=== PATIENT | male | born 2005 | race Caucasian/White ===

== ENCOUNTER 2024-03-28 02:19 | Emergency (ER) | payer OTHER, SELFPAY ==
--- NOTE | 2024-03-28 | ECG_ITS ---
Test Reason : nausea/vomiting Blood Pressure : / mmHG Vent. Rate : 079 BPM Atrial Rate : 079 BPM P-R Int : 108 ms QRS Dur : 086 ms QT Int : 380 ms P-R-T Axes : 031 066 057 degrees QTc Int : 435 ms Sinus rhythm with sinus arrhythmia with short NH ST elevation, consider early repolarization Borderline ECG No previous ECGs available Referred By: Generic ED Physician Electronically Signed By:FARHEEN HUBBARD
[2024-03-28 02:25] VITALS: BP 110/62; PULSE 79; RESP 18; TEMP 36.9; O2SAT 100; BMI 20.8
[2024-03-28 02:54] LABS: Hematocrit 42.5 % (42.0-52.0); Hemoglobin 14.7 g/dl (14.0-18.0); Mean Corpuscular HGB Conc 34.6 g/dl (31.0-36.0); Mean Corpuscular Hemoglobin 29.6 pg (27.0-33.0); Mean Corpuscular Volume 85.5 fL (80.0-98.0); Mean Platelet Volume 9.3 fL (9.4-12.4); Platelet Count 278 X10*3/uL (160-400); Red Blood Count 4.97 X10*6/uL (4.60-5.80); Red Cell Distribution Width 13.2 % (11.0-16.0); White Blood Count 10.2 X10*3/uL (4.8-10.8)
--- NOTE | 2024-03-28 02:54 | MHC.EDTECH ---
Patient ekg taken and was read by Provider ,blood drawn and rsv/covid swab collected and all sent to lab .
[2024-03-28 03:21] LABS: Alanine Aminotransferase 11 U/L (0-40); Albumin Level 4.8 g/dL (3.5-5.0); Alkaline Phosphatase 54 U/L (39-117); Anion Gap 19 (12-20); Aspartate Amino Transferase 14 U/L (5-37); Bilirubin Total 0.7 mg/dL (0.0-1.0); Blood Urea Nitrogen 11 mg/dL (9-16); Calcium 10.4 mg/dL (8.4-10.2); Carbon Dioxide 21 mmol/L (22-29); Chloride 104 mmol/L (96-108); Creatinine Clr Calc Pharmacy 106.1; Estimated Glomerular Filt Rate > 60; Glucose Random 111 mg/dL (60-115); Lipase 9 U/L (8-78); Potassium 4.2 mmol/L (3.3-5.1); Sodium 140 mmol/L (135-145); Total Protein 8.6 g/dL (6.5-8.0)
[2024-03-28 03:32] LABS: Influenza A PCR NEGATIVE (Negative); Influenza B PCR NEGATIVE (Negative); Resp Syncy Virus RNA Qual PCR NEGATIVE (Negative); SARS COV2 PCR INHOUSE NEGATIVE (Negative)
--- NOTE | 2024-03-28 07:01 | ED_ITS ---
HPI - Nausea/Vomiting/Diarrhea General Chief complaint: Nausea/Vomiting/Diarrhea Stated complaint: Dizzy, unable to keep anything down Time Seen by Provider: 03/28/24 06:59 Source: patient Mode of arrival: ambulatory Limitations: no limitations History of Present Illness ED Provider: SHWETA QUISPE Narrative: 18 yo male with no sig PMH started with abrupt onset waking up early AM with n/v/d weakness and not feeling well no sick contacts, travel, food exposures or any known cause. He feels tired nauseated and weak. MD elicited complaint: nausea, vomiting and diarrhea Onset (ago): hour(s) (few) Description of vomiting: food contents and watery Description of diarrhea: watery Associated nausea: Yes Associated abdominal pain: Yes Location of pain: diffuse Radiation: diffuse Pain consistency: intermittent Severity: mild Quality: cramping Exacerbating factors: eating Relieving factors: none Associated symptoms: loss of appetite, malaise, nausea/vomiting and weakness Related Data Previous Rx's ?Medication ?Instructions ?Recorded ondansetron 4 mg disintegrating 4 mg PO Q8H PRN nausea and 03/28/24 tablet vomiting #20 tabs Allergies Allergy/AdvReac Type Severity Reaction Status Date / Time animal dander Allergy Unknown Verified 03/28/24 02:30 Seasonal Allergies Allergy Anaphylaxis Verified 03/28/24 02:30 Review of Systems 2 Review of Systems: Constitutional : No Weight loss, No Fever, No Chills ENT/Mouth : No sore throat, No Rhinorrhea Eyes: No Swelling, No Redness Cardiovascular : No Chest Pain, No SOB, NoEdema Respiratory : No Cough, No Sputum, No Wheezing Gastrointestinal : Positive Nausea, Positive Vomiting, positive Diarrhea, positive abdominal Pain, No Hematochezia, No Melena Genitourinary : No Dysuria, No Urinary Frequency, No Hematuria, No Urgency Musculoskeletal : No joint pain, No Myalgias, No Joint Swelling Skin : No Skin Lesions, No rash Neuro : No Weakness, No Numbness, No Dizziness, No Headache Psych : No Anxiety/Panic, No Depression All other systems reviewed and are negative. Gastrointestinal: Gastrointestinal: Reports nausea PMFSH Past Medical History Attestation statement: The following information was validated with the patient. Source: old records reviewed Medical History No pertinent past medical history Social History Social History (Updated 03/28/24 @ 07:34 by Melissa Singer DO) Patient Tobacco Use Status: Never used Tobacco Advance Directives: No Advance Directives Information Provided: Yes Do you have a plan to hurt others: No Plan Physical Exam 2 Vital Signs: Vital Signs: Last Vital Signs Temp 97.4 F 03/28/24 07:13 Pulse 71 03/28/24 07:13 Resp 18 03/28/24 07:13 BP 107/57 L 03/28/24 07:13 Pulse Ox 98 03/28/24 07:13 O2 Del Method Room Air 03/28/24 07:13 BMI result Body Mass Index 20.8 Appearance: Alert. Oriented X3. No acute distress. Eyes: Pupils equal, round and reactive to light. ENT: Pharynx mildly dry MM Neck: Normal inspection. Neck supple. CVS: Normal heart rate and rhythm. Pulses normal. Respiratory: No respiratory distress. Breath sounds normal. Abdomen: Soft and nontender. Skin: Skin warm and dry. pale skin color. Extremities: No lower extremity edema. Neuro: Oriented X 3. No motor deficit. No sensory deficit. Medical Decision Making Medical Decision Making [facility] Narrative: 18 yo male otherwise healthy here with c/o n/v/d and cramps starting all at once without known exposure at this time labs, IVF x 2L, zofran and will PO challenge suspect viral syndrome given the abrupt onset of all symptoms. no localized ttp to suggest biliary colic or appendicitis Differential Diagnosis Differential Diagnoses: The differential diagnosis associated with the presentation includes viral syndrome, dehydration Admission/Observation Consideration of admission/observation: Escalation of care including admission/observation considered not toxic, able to tolerate PO Lab Data [facility] Lab Attestation statement: I reviewed the patient's lab results. 03/28/24 02:49 03/28/24 02:49 Labs: Lab Results 03/28/24 Range/Units 02:49 WBC 10.2 (4.8-10.8) X10*3/uL RBC 4.97 (4.60-5.80) X10*6/uL Hgb 14.7 (14.0-18.0) g/dl Hct 42.5 (42.0-52.0) % MCV 85.5 (80.0-98.0) fL MCH 29.6 (27.0-33.0) pg MCHC 34.6 (31.0-36.0) g/dl RDW 13.2 (11.0-16.0) % Plt Count 278 (160-400) X10*3/uL MPV 9.3 L (9.4-12.4) fL Absolute Nucleated RBC 0.000 (0.0-0.012) X10*3/uL Nucleated RBC % (auto) 0.0 (0.0-0.2) /100WBC Sodium 140 (135-145) mmol/L Potassium 4.2 (3.3-5.1) mmol/L Chloride 104 (96-108) mmol/L Carbon Dioxide 21 L (22-29) mmol/L Anion Gap 19 (12-20) BUN 11 (9-16) mg/dL Creatinine 0.89 (0.5-1.4) mg/dL Estim Creat Clear Calc 106.1 Estimated GFR > 60 Random Glucose 111 (60-115) mg/dL Calcium 10.4 H (8.4-10.2) mg/dL Total Bilirubin 0.7 (0.0-1.0) mg/dL AST 14 (5-37) U/L ALT 11 (0-40) U/L Alkaline Phosphatase 54 (39-117) U/L Total Protein 8.6 H (6.5-8.0) g/dL Albumin 4.8 (3.5-5.0) g/dL Lipase 9 (8-78) U/L Influenza Type A (PCR) NEGATIVE (Negative) Influenza Type B (PCR) NEGATIVE (Negative) RSV RNA Qual (PCR) NEGATIVE (Negative) SARS-CoV-2 RNA (RT-PCR) NEGATIVE (Negative) Independent Interpretation I performed an independent interpretation of an: EKG Interpretation: Rate: 79 Rhythm: NSR Pelican: normal Normal P waves. Normal ESTEFANIA. Normal QRS complex. ST T wave : early repolarization V1 t wave inversion qTC: normal prior studies: The study has been interpreted contemporaneously by me. . Independent Historian Clinical information obtained from an independent historian. History obtained from or confirmed by: Spouse Prescription Management I considered prescription management with: Other Discharge Plan Discharge Clinical Impression: Acute dehydration Nausea & vomiting Qualifiers: Vomiting type: unspecified Qualified Code(s): R11.2 - Nausea with vomiting, unspecified Patient Disposition: Home, Self-Care Instructions: Dehydration (ED), Acute Nausea and Vomiting (ED) Additional Instructions: bland diet for 2 days - stay hydrated return for worsening symptoms pain inability to eat or drink or any other concerns Prescriptions: New ondansetron 4 mg tablet,disintegrating 4 mg PO Q8H PRN (Reason: nausea and vomiting) Qty: 20 0RF Stand Alone Forms: Work/School Release Print Language: Montserratian
[2024-03-28 07:13] VITALS: BP 107/57; PULSE 71; RESP 18; TEMP 36.3; O2SAT 98
[2024-03-28] MEDS: 0.9 % Sodium Chloride 1,000 ML 999 ML IV ×2 (07:52→09:00)
[2024-03-28] MEDS: ondansetron HCL 4 MG/2 ML VIAL IVPUSH (07:52)
--- NOTE | 2024-03-28 07:54 | PC.NURSE ---
IV established, medicated per the MAR. visitor at bedside, patient with no obvious signs/symptoms of distress noted. even and unlabored respirations.
--- NOTE | 2024-03-28 09:00 | PC.NURSE ---
second liter of fluids infusing, patient and visitor asleep in room, even and unlabored respirations. call carrera remains within reach.
[2024-03-28 10:10] VITALS: BP 103/49; PULSE 66; RESP 16; TEMP 36.8; O2SAT 97
[2024-03-28 10:29] VITALS: BP 103/49; PULSE 66; RESP 16; TEMP 36.8; O2SAT 97
== END 2024-03-28 10:30 | disposition home or self-care (01) ==
PROVIDERS: Emergency Provider Emergency Medicine; PCP Nurse Practitioner Family
DX: E86.0 Dehydration (principal); R11.2 Nausea with vomiting, unspecified
CPT/HCPCS: 0241U; 36415; 80053; 83690; 85027; 93005; 96361; 96374; 99284; J2405

== ENCOUNTER → 2024-03-28 02:37 | Outpatient (BNV) | payer OTHER, SELFPAY | PROVIDERS: Emergency Provider Emergency Medicine; PCP Nurse Practitioner Family; Visit Provider Internal Medicine | DX: I49.9 Cardiac arrhythmia, unspecified (principal) | CPT/HCPCS: 93010 ==

== ENCOUNTER 2024-07-24 13:58 | Emergency (ER) | payer OTHER, SELFPAY ==
[2024-07-24 15:04] VITALS: BP 123/70; PULSE 83; RESP 16; TEMP 36.6; O2SAT 99; BMI 20.2
--- NOTE | 2024-07-24 15:08 | ED_ITS ---
HPI - General Adult General Chief complaint: Burn/Smoke Inhalation Stated complaint: Burn L foot Time Seen by Provider: 07/24/24 16:46 Source: patient and RN notes reviewed Mode of arrival: ambulatory Limitations: no limitations History of Present Illness ED Provider: Bessy Lacey PA-C [facility] narrative: This is a 19-year-old male, with no known medical problems, who presents emergency department with complaints of thermal burn to his left ankle. While he was at work, hot water spilled onto his left ankle. He removed the sock and shoe on his foot and has had burning pain to his left ankle since. Denies taking any medications at home to treat his symptoms. He is UTD with his tdap. No numbness, tingling. MD complaint: Burn Onset (ago): hour(s) Location: lower extremity Radiation: non-radiation Severity: moderate Quality: burning Pain Consistency: constant Relieving factors: cold therapy Exacerbating factors: movement Associated symptoms: denies other symptoms Treatments prior to arrival: none Related Data Previous Rx's ?Medication ?Instructions ?Recorded ondansetron 4 mg disintegrating 4 mg PO Q8H PRN nausea and 03/28/24 tablet vomiting #20 tabs bacitracin 500 unit/gram topical 1 appl topical TID #14 grams 07/24/24 ointment Allergies Allergy/AdvReac Type Severity Reaction Status Date / Time animal dander Allergy Unknown Verified 07/24/24 15:05 Seasonal Allergies Allergy Anaphylaxis Verified 07/24/24 15:05 Review of Systems Review of Systems: Yes all other systems are reviewed and are negative Constitutional: Constitutional: Reports as per [facility] Past Medical History Medical History No pertinent past medical history Social History Social History (Updated 03/28/24 @ 07:34 by Melissa Singer DO) Patient Tobacco Use Status: Never used Tobacco Advance Directives: No Advance Directives Information Provided: No Do you have a plan to hurt others: No Plan Physical Exam ED Vital Signs: Vital Signs - 24 hr 07/24/24 15:04 07/24/24 17:23 Temperature 98 F 98 F Pulse Rate 83 83 Respiratory Rate 16 16 Blood Pressure 123/70 123/70 Pulse Oximetry 99 99 Oxygen Delivery Method Room Air Room Air BMI result Body Mass Index 20.2 Const General: cooperative, comfortable and no acute distress Orientation/consciousness: patient oriented x3 Limitations: no limitations HENMT Head: Yes normal to inspection, Yes normocephalic and Yes atraumatic Ears: hearing grossly normal bilaterally General nose exam: Normal external nose present Face and sinus: Yes normal facial exam Mouth: Normal oral and palatal mucosa present, oropharynx normal and moist mucous membranes Throat: Yes posterior oropharynx normal Eyes General: appearance normal, both eyes and all related structures Eyelids: Yes eyelids normal Conjunctivae: conjunctivae normal Sclerae: sclerae normal Pupils: Equal, round and reactive pupils present EOM: EOMs intact bilaterally Neck Neck: Yes normal visual inspection, Yes full ROM and Yes no lymphadenopathy Lymphatic: no lymphadenopathy noted Chest Chest palpation & inspection: normal inspection of the chest Resp Effort & Inspection: normal respiratory effort and able to speak in complete sentences Auscultation: clear to auscultation bilaterally, no crackles, no rales, no rhonchi and no wheezes Cardio Rate: regular rate Rhythm: regular rhythm Heart sounds: S1 normal heart sound present and S2 normal heart sound present GI Inspection: Yes normal to inspection Skin Other: Left ankle medial aspect there is a thermal burn noted, 2nd degree, with previously ruptured bullae, just inferiolateral to this region there is 2cm bullae noted, TTP. No surrounding erythema or warmth, sensation intact. Full ROM of the ankle joint Neuro General: patient oriented x3 and moves all extremities Cranial nerves: Yes Equal, round and reactive pupils present Extrem General: Yes normal to inspection Right upper extremity: normal to inspection Left upper extremity: normal to inspection Right lower extremity: normal to inspection Left lower extremity: normal to inspection Course Course Course Narrative: RmE: Done by BLANCA rojas. 19-year-old male presents to ED for left lateral ankle burn caused by hot water while at work. 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 Second-degree burn. Medications Administered Discontinued Medications Generic Name Dose Route Start Last Admin Trade Name Freq PRN Reason Stop Dose Admin Bacitracin 1 appl 07/24/24 16:56 07/24/24 17:13 Bacitracin Oint 0.9 Gm Packet TOPICAL 07/24/24 16:57 1 appl ONCE ONE Administration Protocol Ibuprofen 600 mg 07/24/24 16:56 07/24/24 17:05 Ibuprofen 600 Mg Tablet PO 07/24/24 16:57 600 mg ONCE ONE Administration Lidocaine HCl 1 appl 07/24/24 16:56 07/24/24 17:14 Lidocaine 4 % Cream Kit TOPICAL 07/24/24 16:57 1 appl ONCE ONE Administration Protocol Medical Decision Making Medical Decision Making MDM Narrative: 19 y/o m who presents with complaints of left ankle thermal burn. Pt accidentally dropped hot water onto his left ankle at work. Pt with 3x3 thermal burn with blistering noted. LMX and bacitracin applied to the wounds. Tetanus up-to-date. S return precautions. He understands agrees with plan. Patient stable for discharge Differential Diagnosis Differential Diagnoses: The differential diagnosis associated with the presentation includes Thermal burn, cellulitis, contact dermatitis Discharge Plan Discharge Clinical Impression: Thermal burn, Second degree burn of left ankle Patient Disposition: Home, Self-Care Instructions: Second Degree Burn (ED), Flash Burn of Skin (ED) Additional Instructions: You were seen in the emergency department due to a thermal burn. Please keep wound clean and dry. This blister may rupture on its own, do not pick at wound. Watch for any signs of infection including but not limited to increased redness, swelling, fevers, chills, difficulty moving your ankle. Any of these occur, please seek emergent care. Continue using antibiotic ointment 3 times a day for the next 7 days. You may also mix this with the topical lidocaine as needed. Use the topical lidocaine sparingly as this delays healing. Keep wound clean and dry, you can use gentle soap and water. Do not directly apply ice the area as this also can damage the healing process. Prescriptions: New bacitracin 500 unit/gram ointment 1 appl topical TID Qty: 14 0RF No Action ondansetron 4 mg tablet,disintegrating 4 mg PO Q8H PRN (Reason: nausea and vomiting) Qty: 20 0RF Stand Alone Forms: Work/School Release Interventions: ED Discharge Assessment Last Done: 07/24/24 17:23 Discharge Date/Time: 07/24/24 17:26 Print Language: Ukrainian
[2024-07-24] MEDS: Ibuprofen 600 MG TABLET PO (17:05)
[2024-07-24] MEDS: Bacitracin Oint 0.9 GM PACKET 1 APPL TOPICAL (17:13)
[2024-07-24] MEDS: Lidocaine 4 % Cream KIT 1 APPL TOPICAL (17:14)
[2024-07-24 17:23] VITALS: BP 123/70; PULSE 83; RESP 16; TEMP 36.6; O2SAT 99
== END 2024-07-24 17:26 | disposition home or self-care (01) ==
PROVIDERS: Emergency Provider Emergency Medicine; PCP Nurse Practitioner Family
DX: T25.212A Burn of second degree of left ankle, initial encounter (principal); T31.0 Burns involving less than 10% of body surface; T79.9XXA Unspecified early complication of trauma, initial encounter; M25.572 Pain in left ankle and joints of left foot; X12.XXXA Contact with other hot fluids, initial encounter; Y93.89 Activity, other specified; Y92.89 Other specified places as the place of occurrence of the external cause; Y99.8 Other external cause status
CPT/HCPCS: 16025; 99283; 99284

== ENCOUNTER 2024-11-23 02:52 | Emergency (ER) | payer SELFPAY ==
--- NOTE | ~2024-11-23 | XR_ITS ---
CLINICAL HISTORY: cp cough Chest X-ray, 1 View COMPARISON: None FINDINGS: No consolidation. No pleural effusion. No pneumothorax. No cardiomegaly. No acute fracture. IMPRESSION: No acute findings. This document has been electronically signed by: Buck Riojas MD on 11/23/2024 03:25:02
[2024-11-23 03:00] VITALS: BP 106/74; PULSE 90; RESP 20; TEMP 36.6; O2SAT 98; BMI 20.8
--- NOTE | 2024-11-23 03:07 | ECG_ITS ---
Test Reason : cough/cp Blood Pressure : */* mmHG Vent. Rate : 85 BPM Atrial Rate : 85 BPM P-R Int : 108 ms QRS Dur : 90 ms QT Int : 338 ms P-R-T Axes : 62 60 54 degrees QTcB Int : 402 ms Sinus rhythm with sinus arrhythmia with short WA Otherwise normal ECG When compared with ECG of 28-Mar-2024 02:37, No significant change was found Referred By: Generic ED Physician Electronically Signed By: LIONEL MCNEIL MD
--- NOTE | 2024-11-23 03:41 | MHC.EDTECH ---
Patient brought into triage area,EKG taken per order,signed by provider,labs and sars/flu/rsv obtained and sent to lab
[2024-11-23 03:49] LABS: MANUAL DIFF FLAG NO
[2024-11-23 03:51] LABS: Basophils Percent Auto 0.3 % (0-2); Hematocrit 42.9 % (42.0-52.0); Hemoglobin 15.4 g/dl (14.0-18.0); Imm Gran Abs Auto 0.03 X10*3/uL (0.00-0.03); Imm Gran Pct Auto 0.5 % (0.0-0.4); Lymphocytes Absolute Auto 0.4 X10*3/uL (1.2-4.9); Lymphocytes Percent Auto 5.8 % (20-40); Mean Corpuscular HGB Conc 35.9 g/dl (31.0-36.0); Mean Corpuscular Hemoglobin 30.6 pg (27.0-33.0); Mean Corpuscular Volume 85.1 fL (80.0-98.0); Mean Platelet Volume 9.7 fL (9.4-12.4); Monocytes Absolute Auto 0.2 X10*3/uL (0.1-1.2); Monocytes Percent Auto 3.7 % (2-11); Neutrophils Absolute Auto 5.6 x10*3/uL (2.0-8.3); Neutrophils Percent Auto 89.7 % (45-73); Platelet Count 247 X10*3/uL (160-400); Red Blood Count 5.04 X10*6/uL (4.60-5.80); Red Cell Distribution Width 12.8 % (11.0-16.0); White Blood Count 6.2 X10*3/uL (4.8-10.8)
[2024-11-23 04:14] LABS: Chloride 104 mmol/L (96-108); Potassium 3.8 mmol/L (3.3-5.1); Sodium 136 mmol/L (135-145)
[2024-11-23 04:15] LABS: Carbon Dioxide 20 mmol/L (22-29)
[2024-11-23 04:16] LABS: Anion Gap 16 (12-20); Blood Urea Nitrogen 9 mg/dL (9-16); Creatinine Clr Calc Pharmacy 111.5; Estimated Glomerular Filt Rate > 60
[2024-11-23 04:18] LABS: Alanine Aminotransferase 10 U/L (0-40); Albumin Level 4.5 g/dL (3.5-5.0); Aspartate Amino Transferase 19 U/L (5-37); Bilirubin Direct 0.2 mg/dL (0.0-0.5); Bilirubin Total 0.6 mg/dL (0.0-1.0); Calcium 9.8 mg/dL (8.4-10.2); Glucose Random 114 mg/dL (60-115); Lipase 12 U/L (8-78); Total Protein 8.3 g/dL (6.5-8.0)
[2024-11-23 04:19] LABS: Alkaline Phosphatase 52 U/L (39-117)
[2024-11-23 04:27] LABS: Influenza A PCR NEGATIVE (Negative); Influenza B PCR POSITIVE (Negative); Resp Syncy Virus RNA Qual PCR NEGATIVE (Negative); SARS COV2 PCR INHOUSE NEGATIVE (Negative)
--- NOTE | 2024-11-23 07:59 | ED.NAVMDI ---
HPI - Nausea/Vomiting/Diarrhea General Chief complaint: Nausea/Vomiting/Diarrhea Stated complaint: trouble breathing Time Seen by Provider: 11/23/24 07:58 Source: patient and family Mode of arrival: ambulatory Limitations: no limitations History of Present Illness ED Provider: Anthony Duncan PA-C HPI Narrative: 19 y/o otherwise healthy male presents to the ER for evaluation of N/V, SOB, cough and generally not feeling well since yesterday. He reports he has been unable to keep anything down since then and he has been vomiting everything he tries to eat or drink. He has a congested cough and SOB. He also had a couple of episodes of diarrhea, non-bloody. He reports upset stomach along with diffuse body aches and headache. He has been coughing and having chest pain when coughing. No phelgm. No chest pain at rest. No fevers but he has had chills. No known sick contacts. Not vaccinated for the flu. MD elicited complaint: nausea, vomiting, diarrhea, abdominal pain and other (cough, chest pain) Onset (ago): day(s) (1) Description of vomiting: bilious Description of diarrhea: loose Associated nausea: Yes Associated abdominal pain: Yes Location of pain: diffuse Pain consistency: intermittent Severity: moderate Quality: cramping Exacerbating factors: eating Relieving factors: none Associated symptoms: myalgias, chest pain, cough, fever/chills, headaches, loss of appetite, malaise, nausea/vomiting, weakness and fatigue Related Data Previous Rx's ?Medication ?Instructions ?Recorded ondansetron 4 mg disintegrating 4 mg PO Q8H PRN nausea and 03/28/24 tablet vomiting #20 tabs bacitracin 500 unit/gram topical 1 appl topical TID #14 grams 07/24/24 ointment ondansetron 4 mg disintegrating 4 mg PO Q8H PRN nausea and 11/23/24 tablet vomiting #7 tabs Allergies Allergy/AdvReac Type Severity Reaction Status Date / Time animal dander Allergy Unknown Verified 11/23/24 03:03 Seasonal Allergies Allergy Anaphylaxis Verified 11/23/24 03:03 Review of Systems Review of Systems: Yes all other systems are reviewed and are negative Gastrointestinal: Gastrointestinal: Reports nausea PMFSH Past Medical History Medical History No pertinent past medical history Social History Social History (Updated 03/28/24 @ 07:34 by Melissa Singer DO) Patient Tobacco Use Status: Never used Tobacco Smoked in Last 30 Days: No Use of substances other than those prescribed or required for medical reasons: No Advance Directives: No Advance Directives Information Provided: Yes Do you have a plan to hurt others: No Plan Physical Exam Vital Signs: Vital Signs: Last Vital Signs Temp 98.4 F 11/23/24 12:05 Pulse 73 11/23/24 12:05 Resp 18 11/23/24 12:05 BP 108/62 11/23/24 12:05 Pulse Ox 95 11/23/24 12:05 O2 Del Method Room Air 11/23/24 12:05 BMI result Body Mass Index 20.8 Appearance: Alert. Oriented X3. Appears sick, holding emesis bag with biliious vomit Head: normocephalic, atraumatic. Eyes: Pupils equal, round and reactive to light. ENT: Pharynx normal. No tonsillar swelling or exudate. Neck: Normal inspection. Neck supple. CVS: Normal heart rate and rhythm. Pulses normal. Respiratory: No respiratory distress. Breath sounds normal. Congested cough noted. Abdomen: Soft and nontender. +BS x4 Skin: Skin warm and dry. Normal skin color. Normal skin turgor. No rashes. Extremities: No lower extremity edema. No joint swelling. Neuro/psych: Oriented X 3. Grossly normal, nonfocal. Normal speech and cognition. Course Reevaluation(s) Reevaluation #1: PO trial failed. recurrently vomiting now. 2nd dose zofran ordered Time: 10:04 Medications Administered Discontinued Medications Generic Name Dose Route Start Last Admin Trade Name Freq PRN Reason Stop Dose Admin Lactated Ringer's 1,000 mls @ 999 mls/hr 11/23/24 08:00 11/23/24 10:00 Lr IV 11/23/24 09:00 Infused .Q1H1M MONTSE Infusion Ketorolac Tromethamine 15 mg 11/23/24 07:58 11/23/24 08:37 Ketorolac Tromethamine 15 Mg/Ml Vial IVPUSH 11/23/24 07:59 15 mg ONCE ONE Administration Ondansetron HCl 4 mg 11/23/24 07:58 11/23/24 08:38 Ondansetron Hcl 4 Mg/2 Ml Vial IVPUSH 11/23/24 07:59 4 mg ONCE ONE Administration Ondansetron HCl 4 mg 11/23/24 10:03 11/23/24 10:50 Ondansetron Hcl 4 Mg/2 Ml Vial IVPUSH 11/23/24 10:04 4 mg ONCE ONE Administration Medical Decision Making Medical Decision Making [facility] Narrative: 19 yo male presenting to the ER for evaluation of N/V/D, congested cough, abd pain for the last 3 days. recent exposure to his sick girlfriend who had bronchitis. his labs are unremarkable. No leukocytosis. Labs show stable electrolytes, no significant metabolic derangement. Renal function is normal. LFTs are normal. IV was established and he was given IV anti-emetics for active vomiting. IV fluids given. P.o. trial was attempted however patient vomited up the eileen cathleen. Second dose of Zofran was given. Patient found to have influenza B. given n/v/d and duration of symptoms, will defer tamiflu for now will d/c home with PRN zofran Differential Diagnosis Differential Diagnoses: The differential diagnosis associated with the presentation includes strep, covid, flu, rsv, other viral syndrome, bronchitis, pneumonia, gastroenteritis, appendicitis, colitis Admission/Observation Consideration of admission/observation: Escalation of care including admission/observation considered Lab Data [facility] Lab Attestation statement: I reviewed the patient's lab results. as above 11/23/24 03:41 11/23/24 03:41 Labs: Lab Results 11/23/24 Range/Units 03:41 WBC 6.2 (4.8-10.8) X10*3/uL RBC 5.04 (4.60-5.80) X10*6/uL Hgb 15.4 (14.0-18.0) g/dl Hct 42.9 (42.0-52.0) % MCV 85.1 (80.0-98.0) fL MCH 30.6 (27.0-33.0) pg MCHC 35.9 (31.0-36.0) g/dl RDW 12.8 (11.0-16.0) % Plt Count 247 (160-400) X10*3/uL MPV 9.7 (9.4-12.4) fL Immature Gran % (Auto) 0.5 H (0.0-0.4) % Neut % (Auto) 89.7 H (45-73) % Lymph % (Auto) 5.8 L (20-40) % Newberry % (Auto) 3.7 (2-11) % Eos % (Auto) 0.0 (0-4) % Baso % (Auto) 0.3 (0-2) % Lymph # (Auto) 0.4 L (1.2-4.9) X10*3/uL Newberry # (Auto) 0.2 (0.1-1.2) X10*3/uL Eos # (Auto) 0.0 (0.0-0.4) X10*3/uL Baso # (Auto) 0.0 (0.0-0.2) X10*3/uL Abs Immat Gran (auto) 0.03 (0.00-0.03) X10*3/uL Absolute Neuts (auto) 5.6 (2.0-8.3) x10*3/uL Absolute Nucleated RBC 0.000 (0.0-0.012) X10*3/uL Nucleated RBC % (auto) 0.0 (0.0-0.2) /100WBC Sodium 136 (135-145) mmol/L Potassium 3.8 (3.3-5.1) mmol/L Chloride 104 (96-108) mmol/L Carbon Dioxide 20 L (22-29) mmol/L Anion Gap 16 (12-20) BUN 9 (9-16) mg/dL Creatinine 0.84 (0.5-1.4) mg/dL Estim Creat Clear Calc 111.5 Estimated GFR > 60 Random Glucose 114 (60-115) mg/dL Calcium 9.8 (8.4-10.2) mg/dL Total Bilirubin 0.6 (0.0-1.0) mg/dL Direct Bilirubin 0.2 (0.0-0.5) mg/dL AST 19 (5-37) U/L ALT 10 (0-40) U/L Alkaline Phosphatase 52 (39-117) U/L Total Protein 8.3 H (6.5-8.0) g/dL Albumin 4.5 (3.5-5.0) g/dL Lipase 12 (8-78) U/L Influenza Type A (PCR) NEGATIVE (Negative) Influenza Type B (PCR) POSITIVE A (Negative) RSV RNA Qual (PCR) NEGATIVE (Negative) SARS-CoV-2 RNA (RT-PCR) NEGATIVE (Negative) Independent Interpretation I performed an independent interpretation of an: EKG and Plain X-Ray Interpretation: ekg with sinus rhythm, normal qtc, no st segment elevations or depressions, vent rate 85 cxr clear with no focal infiltrate Radiology Impression Discussion of test interpretation with radiology: I have reviewed the radiologist's reading. Independent Historian Clinical information obtained from an independent historian. History obtained from or confirmed by: Friend External Record Review External record reviewed: Outpatient record and Prior outpatient labs Tests considered The following testing was considered but not selected: considered CT scan abd/pelvis Prescription Management I considered prescription management with: Pain Medication, Antiviral and Other (antiemetic) Critical Care Time Critical Care Time Critical Care Time: No Discharge Plan Discharge Clinical Impression: Influenza B Patient Disposition: Home, Self-Care Instructions: Influenza (DC) Additional Instructions: You have influenza B. This is a very contagious virus. Do not go out in public while you are not feeling well. You lab workup today was unremarkable. Your chest x-ray did not show any evidence of pneumonia. Treatment is supportive care, symptoms usually resolve on their own in 48-72 hours. Recommend rest and plenty of oral hydration. Stick to a bland diet like soup and toast while you are not feeling well. Take the prescribed medication as needed for nausea. Recommend over the counter Pepto Bismol or Imodium for upset stomach and diarrhea. Follow up with your doctor as needed. If you develop new or worsening symptoms call 911 or come back to the ER for further evaluation. Prescriptions: New ondansetron 4 mg tablet,disintegrating 4 mg PO Q8H PRN (Reason: nausea and vomiting) Qty: 7 0RF No Action ondansetron 4 mg tablet,disintegrating 4 mg PO Q8H PRN (Reason: nausea and vomiting) Qty: 20 0RF bacitracin 500 unit/gram ointment 1 appl topical TID Qty: 14 0RF Referrals: Toño Ventura MD [Primary Care Provider] - Stand Alone Forms: Work/School Release Interventions: ED Discharge Assessment Last Done: 11/23/24 12:05 Discharge Date/Time: 11/23/24 12:06 Print Language: Estonian
[2024-11-23 08:09] VITALS: BP 111/63; PULSE 91; RESP 18; TEMP 36.8; O2SAT 95
[2024-11-23] MEDS: Lactated Ringers 1,000 ML 999 ML IV (08:34)
[2024-11-23] MEDS: Ketorolac Tromethamine 15 MG/ML VIAL IVPUSH (08:37)
[2024-11-23] MEDS: ondansetron HCL 4 MG/2 ML VIAL IVPUSH ×2 (08:38→10:50)
--- NOTE | 2024-11-23 08:44 | PC.NURSE ---
pt is alert and oriented, skin appropriate for ethnicity, respirations even and unlabored, ls clear, pt reports not feeling for two days, vomiting/abd pain/cough
--- NOTE | 2024-11-23 10:00 | PC.NURSE ---
pt is not tolerating po, vomited after the ice chips and crackers
[2024-11-23 10:50] VITALS: BP 108/62; PULSE 73; RESP 18; TEMP 36.9; O2SAT 95
[2024-11-23 12:05] VITALS: BP 108/62; PULSE 73; RESP 18; TEMP 36.9; O2SAT 95
== END 2024-11-23 12:06 | disposition home or self-care (01) ==
PROVIDERS: Emergency Provider Emergency Medicine; PCP Pediatrics Adolescent Medicine
DX: J10.1 Influenza due to other identified influenza virus with other respiratory manifestations (principal); R11.2 Nausea with vomiting, unspecified; R06.02 Shortness of breath; R05.9 Cough, unspecified; R07.89 Other chest pain; I49.8 Other specified cardiac arrhythmias; R51.9 Headache, unspecified; Z03.818 Encounter for observation for suspected exposure to other biological agents ruled out; Z79.899 Other long term (current) drug therapy
CPT/HCPCS: 0241U; 36415; 71045; 80053; 82248; 83690; 85025; 93005; 96365; 96375; 99284; 99285; J1885; J2405; J7120

== ENCOUNTER → 2024-11-23 03:07 | Outpatient (BNV) | payer SELFPAY | PROVIDERS: Emergency Provider Emergency Medicine; PCP Pediatrics Adolescent Medicine; Visit Provider Internal Medicine Cardiovascular Disease | DX: R07.9 Chest pain, unspecified (principal); R05.9 Cough, unspecified | CPT/HCPCS: 93010 ==

== ENCOUNTER → 2024-11-23 03:07 | Outpatient (BNV) | payer OTHER, SELFPAY | PROVIDERS: PCP Pediatrics Adolescent Medicine; Visit Provider Radiology Diagnostic Radiology | DX: R07.9 Chest pain, unspecified (principal); R05.9 Cough, unspecified | CPT/HCPCS: 71045 ==